=== PATIENT | male | born 1970 | race Two or more races ===

== ENCOUNTER 2018-05-28 15:27 | Observation (INO) | payer OTHER ==
--- NOTE | 2018-05-28 15:46 | EDPHY ---
H & P Stated Complaint: cp l chest x 5 days/cough pain worse with deep breath Time Seen by Provider: 05/28/18 15:46 HPI/ROS: CHIEF COMPLAINT: "Heart pain" HISTORY OF PRESENT ILLNESS: The patient presents to the ED with complaints of intermittent left anterior chest pain that is been occurring for the past week. The patient reports he has been experiencing it primarily at work when using heavy equipment. The patient denies any radiation of the pain to the neck back or jaw. He has no prior history of exertional chest pain or shortness of breath. He does endorse occasional intermittent symptoms of pleurisy. He denies asymmetric calf pain or swelling. The patient is a smoker. He has no other risk factors for heart disease. The patient denies any fever, cough or congestion. The patient reports that his chest pain was so severe last he was certain he was having heart attack. The patient does report that he drinks energy drinks throughout the day. He denies any correlation between the consumption of these beverages on the development of his symptoms. REVIEW OF SYSTEMS: A comprehensive 10 point review of systems is otherwise negative aside from elements mentioned in the history of present illness. Source: Patient Exam Limitations: No limitations - Personal History Current Tetanus Diphtheria and Acellular Pertussis (TDAP): Yes Tetanus Vaccine Date: < 10 years - Medical/Surgical History Hx Asthma: No Hx Chronic Respiratory Disease: No Hx Diabetes: No Hx Cardiac Disease: No Hx Renal Disease: No Hx Cirrhosis: No Hx Alcoholism: No Hx HIV/AIDS: No Hx Splenectomy or Spleen Trauma: No Other PMH: l eye surgery - Social History Smoking Status: Heavy smoker - Physical Exam Exam: General Appearance: Alert, no distress Eyes: Pupils equal and round no pallor or injection ENT, Mouth: Mucous membranes moist Respiratory: There are no retractions, lungs are clear to auscultation Cardiovascular: Regular rate and rhythm Gastrointestinal: Abdomen is soft and nontender, no masses, bowel sounds normal Neurological: A&O, normal motor function, normal sensory exam, normal cranial nerves Skin: Warm and dry, no rashes Musculoskeletal: Neck is supple nontender Extremities: symmetrical, full range of motion Psychiatric: Patient is oriented X 3, there is no agitation Constitutional: Initial Vital Signs Temperature (C) 36.8 C 05/28/18 15:33 Heart Rate 60 05/28/18 15:33 Respiratory Rate 18 05/28/18 15:33 Blood Pressure 131/84 H 05/28/18 15:33 O2 Sat (%) 97 05/28/18 15:33 O2 Delivery Mode Room Air Allergies/Adverse Reactions: No Known Allergies Allergy (Verified 05/28/18 15:33) Home Medications: Medication Instructions Recorded NK [No Known Home Meds] 05/28/18 Medical Decision Making - Diagnostics EKG Interpretation: EKG: Complete interpretation has been separately recorded in the [facility] archive. Summary impression: Sinus rhythm, rate 57. ED Course/Re-evaluation: The patient presents to the ED with increasing chest pain with exertion over the past several days. The patient's initial EKG demonstrates no evidence of ischemia. The patient's troponin is normal. The patient's D-dimer is negative which I feel adequately excludes pulmonary embolism. The patient has a borderline heart score however certainly as a concerning feature for increasing crescendo chest pain with exertion over the past several days. I do feel the prudent to admit the patient for a more expeditious workup of his chest pain. I did curbside Dr. Eloy Cheney from Cardiology. The patient will be admitted to the hospitalist service this evening. He will undergo cardiac rule out and stress test in the morning. Differential Diagnosis: Differential diagnosis considered includes acute coronary syndrome, pericarditis , myocarditis, pulmonary embolism, aortic dissection, pneumothorax - Data Points Laboratory Results: Laboratory Results 05/28/18 15:50 05/28/18 15:50 05/28/18 05/28/18 05/28/18 15:52 15:50 15:50 WBC RBC Hgb Hct MCV MCH MCHC RDW Plt Count MPV Neut % (Auto) Lymph % (Auto) Clinch % (Auto) Eos % (Auto) Baso % (Auto) Nucleat RBC Rel Count Absolute Neuts (auto) Absolute Lymphs (auto) Absolute Monos (auto) Absolute Eos (auto) Absolute Basos (auto) Absolute Nucleated RBC Immature Gran % Immature Gran # D-Dimer < 0.27 ug/mLFEU ug/mLFEU (0.00-0.50) Sodium 137 mEq/L mEq/L (135-145) Potassium 4.1 mEq/L mEq/L (3.5-5.2) Chloride 104 mEq/L mEq/L (97-110) Carbon Dioxide 23 mEq/l mEq/l (22-31) Anion Gap 10 mEq/L mEq/L (6-14) BUN 13 mg/dL mg/dL (7-23) Creatinine 0.8 mg/dL mg/dL (0.7-1.3) Estimated GFR > 60 Glucose 89 mg/dL mg/dL (70-100) Calcium 9.4 mg/dL mg/dL (8.5-10.4) POC Troponin I 0.00 ng/mL ng/mL (0.00-0.08) Troponin I 05/28/18 05/28/18 15:50 15:40 WBC 8.60 10^3/uL 10^3/uL (3.80-9.50) RBC 5.61 10^6/uL 10^6/uL (4.40-6.38) Hgb 16.9 g/dL g/dL (13.7-17.5) Hct 49.5 % % (40.0-51.0) MCV 88.2 fL fL (81.5-99.8) MCH 30.1 pg pg (27.9-34.1) MCHC 34.1 g/dL g/dL (32.4-36.7) RDW 13.5 % % (11.5-15.2) Plt Count 195 10^3/uL 10^3/uL (150-400) MPV 11.2 fL fL (8.7-11.7) Neut % (Auto) 63.6 % % (39.3-74.2) Lymph % (Auto) 26.0 % % (15.0-45.0) Clinch % (Auto) 9.0 % % (4.5-13.0) Eos % (Auto) 0.6 % % (0.6-7.6) Baso % (Auto) 0.5 % % (0.3-1.7) Nucleat RBC Rel Count 0.0 % % (0.0-0.2) Absolute Neuts (auto) 5.47 10^3/uL 10^3/uL (1.70-6.50) Absolute Lymphs (auto) 2.24 10^3/uL 10^3/uL (1.00-3.00) Absolute Monos (auto) 0.77 10^3/uL 10^3/uL (0.30-0.80) Absolute Eos (auto) 0.05 10^3/uL 10^3/uL (0.03-0.40) Absolute Basos (auto) 0.04 10^3/uL 10^3/uL (0.02-0.10) Absolute Nucleated RBC 0.00 10^3/uL 10^3/uL (0-0.01) Immature Gran % 0.3 % % (0.0-1.1) Immature Gran # 0.03 10^3/uL 10^3/uL (0.00-0.10) D-Dimer Sodium Potassium Chloride Carbon Dioxide Anion Gap BUN Creatinine Estimated GFR Glucose Calcium POC Troponin I Troponin I Pending Point of Care Test Results: Chemistry 05/28/18 15:52 POC Troponin I 0.00 ng/mL ng/mL (0.00-0.08) Departure - Departure Disposition: [facility] [place] Inpatient Acute Clinical Impression: Chest pain Condition: Fair
[2018-05-28 16:06] LABS: PLATELET COUNT 195 10^3/uL (150-400)
[2018-05-28] MEDS ORDERED: ONDANSETRON 4 MG/2 ML VIAL IVP PRN (16:47)
[2018-05-28] MEDS ORDERED: ACETAMINOPHEN 325 MG TAB PO PRN (16:47)
[2018-05-28] MEDS ORDERED: ONDANSETRON DISINTEGRATING 4 MG TAB PO PRN (16:47)
--- NOTE | 2018-05-28 16:51 | CPEKG ---
Test Reason : OPEN Blood Pressure : / mmHG Vent. Rate : 057 BPM Atrial Rate : 057 BPM P-R Int : 129 ms QRS Dur : 101 ms QT Int : 427 ms P-R-T Axes : 050 087 062 degrees QTc Int : 416 ms Sinus rhythm Confirmed by Moises Shipley ([id number]) on 05/28/2018 4:51:28 PM Referred By: Moises Shipley Confirmed By:Moises Shipley
--- NOTE | 2018-05-28 16:57 | PDGENHP ---
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 Since that time, he continues to experience intermittent chest pain even while at rest. He is unsure what worsens it, taking a deep breath and drinking water helps alleviate the pain. Initial troponin and EKG were unremarkable. He denies: Fevers, chills, vomiting, dysuria, constipation or diarrhea. Denies any past history of exertional chest pain, or family history of hypertension, myocardial infarctions, stroke, or blood clots. He is being admitted for further workup, treatment and monitoring. History Information - Allergies/Home Medication List Allergies/Adverse Reactions: No Known Allergies Allergy (Verified 05/28/18 15:33) Home Medications: NK [No Known Home Meds] 05/28/18 [Last Taken Unknown] I have personally reviewed and updated: family history, medical history, social history, surgical history - Past Medical History no pertinent PMH - Surgical History Reports: no pertinent surgical hx - Family History Positive for: non-pertinent - Social History Smoking Status: Heavy smoker (Smokes approximately 12-16 cigarettes per day) Tobacco Use: Cigarettes, Greater than 1 pack/day Alcohol Use: Occasionally Drug Use: None Additional social history: . Drinks 1-2 16 oz cans of [employer] energy drink/day Review of Systems Review of Systems: ROS: 10pt was reviewed & negative except for what was stated in HPI & below Physical Exam Physical Exam: Lab data and imaging reviewed. White blood cell: 8.60 Hemoglobin hematocrit: 16.9 in 49.5 Platelet count: 195 Sodium: 137 Potassium: 4.1 Chloride: 104 Carbon dioxide: 23 BUN/Cr: 13/0.8 Troponin: 0.00 D-dimer: <0.27 EKG: Sinus rhythm with normal axis Temp Pulse Resp BP Pulse Ox 36.8 C 60 18 131/84 H 97 05/28/18 15:33 05/28/18 15:33 05/28/18 15:33 05/28/18 15:33 05/28/18 15:33 Constitutional: no apparent distress, appears nourished, not in pain Eyes: PERRL, anicteric sclera, EOMI Ears, Nose, Mouth, Throat: moist mucous membranes, hearing normal, ears appear normal, no oral mucosal ulcers Cardiovascular: regular rate and rhythym, no murmur, rub, or gallop, No edema Peripheral Pulses: 2+: dorsalis-pedis (R), dorsalis-pedis (L) Respiratory: no respiratory distress, no rales or rhonchi, clear to auscultation Gastrointestinal: normoactive bowel sounds, soft, non-tender abdomen, no palpable masses Genitourinary: no bladder fullness, no bladder tenderness Skin: warm, normal color, no rashes or abrasions, no fluctuance, no induration, No mottled Musculoskeletal: full muscle strength, no muscle tenderness, normal joint ROM, no joint effusions Neurologic: AAOx3, sensation intact bilaterally, CN II-XII Intact Psychiatric: interacting appropriately, not anxious, not encephalopathic, thought process linear Lymph, Heme, Immunologic: no cervical LAD, no supraclavicular LAD Lab Data & Imaging Review 05/28/18 15:50 05/28/18 15:50 WBC 8.60 10^3/uL (3.80-9.50) 05/28/18 15:50 RBC 5.61 10^6/uL (4.40-6.38) 05/28/18 15:50 Hgb 16.9 g/dL (13.7-17.5) 05/28/18 15:50 Hct 49.5 % (40.0-51.0) 05/28/18 15:50 MCV 88.2 fL (81.5-99.8) 05/28/18 15:50 MCH 30.1 pg (27.9-34.1) 05/28/18 15:50 MCHC 34.1 g/dL (32.4-36.7) 05/28/18 15:50 RDW 13.5 % (11.5-15.2) 05/28/18 15:50 Plt Count 195 10^3/uL (150-400) 05/28/18 15:50 MPV 11.2 fL (8.7-11.7) 05/28/18 15:50 Neut % (Auto) 63.6 % (39.3-74.2) 05/28/18 15:50 Lymph % (Auto) 26.0 % (15.0-45.0) 05/28/18 15:50 [place] % (Auto) 9.0 % (4.5-13.0) 05/28/18 15:50 Eos % (Auto) 0.6 % (0.6-7.6) 05/28/18 15:50 Baso % (Auto) 0.5 % (0.3-1.7) 05/28/18 15:50 Nucleat RBC Rel Count 0.0 % (0.0-0.2) 05/28/18 15:50 Absolute Neuts (auto) 5.47 10^3/uL (1.70-6.50) 05/28/18 15:50 Absolute Lymphs (auto) 2.24 10^3/uL (1.00-3.00) 05/28/18 15:50 Absolute Monos (auto) 0.77 10^3/uL (0.30-0.80) 05/28/18 15:50 Absolute Eos (auto) 0.05 10^3/uL (0.03-0.40) 05/28/18 15:50 Absolute Basos (auto) 0.04 10^3/uL (0.02-0.10) 05/28/18 15:50 Absolute Nucleated RBC 0.00 10^3/uL (0-0.01) 05/28/18 15:50 Immature Gran % 0.3 % (0.0-1.1) 05/28/18 15:50 Immature Gran # 0.03 10^3/uL (0.00-0.10) 05/28/18 15:50 D-Dimer < 0.27 ug/mLFEU (0.00-0.50) 05/28/18 15:50 Sodium 137 mEq/L (135-145) 05/28/18 15:50 Potassium 4.1 mEq/L (3.5-5.2) 05/28/18 15:50 Chloride 104 mEq/L (97-110) 05/28/18 15:50 Carbon Dioxide 23 mEq/l (22-31) 05/28/18 15:50 Anion Gap 10 mEq/L (6-14) 05/28/18 15:50 BUN 13 mg/dL (7-23) 05/28/18 15:50 Creatinine 0.8 mg/dL (0.7-1.3) 05/28/18 15:50 Estimated GFR > 60 05/28/18 15:50 Glucose 89 mg/dL (70-100) 05/28/18 15:50 Calcium 9.4 mg/dL (8.5-10.4) 05/28/18 15:50 POC Troponin I 0.00 ng/mL (0.00-0.08) 05/28/18 15:52 Assessment & Plan Plan: This is a 48-year-old male with no past medical history presenting with intermittent nonradiating left-sided chest pain, onset last Monday. His vital signs are the following: Blood pressure 131/84, heart rate 60, respirations 18 , temperature 36.8 degrees, and oxygen saturation on room air 97%. Differential diagnoses are acute coronary syndrome, angina, and less likely pulmonary embolism. He is currently asymptomatic. #Chest pain: Heart score 2 (moderately suspicious, risk factors) -Initial troponin and EKG unremarkable: cycle trops Q6H x 2, cycle EKG Q6H x1 then PRN if symptomatic -Cont tele monitoring -Lipid panel in AM -Echo and treadmill NM testing in AM -Cards consulted and notified; left message for Dr. Grimm to consult pt in AM -D-dimer negative -Chest x-ray showing mild bronchitis airways disease with no focal pneumonia. There is mild bilateral peribronchial thickening, no congestive heart failure, no pleural effusion, or pneumothorax -Educated pt to lessen his amount of caffeine intake as he drinks 1-2 16 oz cans of [employer] energy drink per day #Tobacco cessation -He smokes 12-16 cigarettes a day -Does not want to quit right now -CXR w/results above Diet: Regular VTE ppx: SCDs Code: Full Dispo: Admit to obs <Raymundo Costa - Last Filed: 05/28/18 19:14> History and Physical - History of Present Illness Review of Systems Review of Systems: Physical Exam Physical Exam: Temp Pulse Resp BP Pulse Ox 36.6 C 5 L 16 121/72 H 95 05/28/18 19:05 05/28/18 19:05 05/28/18 19:05 05/28/18 19:05 05/28/18 19:05 Lab Data & Imaging Review 05/28/18 15:50 05/28/18 15:50 WBC 8.60 10^3/uL (3.80-9.50) 05/28/18 15:50 RBC 5.61 10^6/uL (4.40-6.38) 05/28/18 15:50 Hgb 16.9 g/dL (13.7-17.5) 05/28/18 15:50 Hct 49.5 % (40.0-51.0) 05/28/18 15:50 MCV 88.2 fL (81.5-99.8) 05/28/18 15:50 MCH 30.1 pg (27.9-34.1) 05/28/18 15:50 MCHC 34.1 g/dL (32.4-36.7) 05/28/18 15:50 RDW 13.5 % (11.5-15.2) 05/28/18 15:50 Plt Count 195 10^3/uL (150-400) 05/28/18 15:50 MPV 11.2 fL (8.7-11.7) 05/28/18 15:50 Neut % (Auto) 63.6 % (39.3-74.2) 05/28/18 15:50 Lymph % (Auto) 26.0 % (15.0-45.0) 05/28/18 15:50 [place] % (Auto) 9.0 % (4.5-13.0) 05/28/18 15:50 Eos % (Auto) 0.6 % (0.6-7.6) 05/28/18 15:50 Baso % (Auto) 0.5 % (0.3-1.7) 05/28/18 15:50 Nucleat RBC Rel Count 0.0 % (0.0-0.2) 05/28/18 15:50 Absolute Neuts (auto) 5.47 10^3/uL (1.70-6.50) 05/28/18 15:50 Absolute Lymphs (auto) 2.24 10^3/uL (1.00-3.00) 05/28/18 15:50 Absolute Monos (auto) 0.77 10^3/uL (0.30-0.80) 05/28/18 15:50 Absolute Eos (auto) 0.05 10^3/uL (0.03-0.40) 05/28/18 15:50 Absolute Basos (auto) 0.04 10^3/uL (0.02-0.10) 05/28/18 15:50 Absolute Nucleated RBC 0.00 10^3/uL (0-0.01) 05/28/18 15:50 Immature Gran % 0.3 % (0.0-1.1) 05/28/18 15:50 Immature Gran # 0.03 10^3/uL (0.00-0.10) 05/28/18 15:50 D-Dimer < 0.27 ug/mLFEU (0.00-0.50) 05/28/18 15:50 Sodium 137 mEq/L (135-145) 05/28/18 15:50 Potassium 4.1 mEq/L (3.5-5.2) 05/28/18 15:50 Chloride 104 mEq/L (97-110) 05/28/18 15:50 Carbon Dioxide 23 mEq/l (22-31) 05/28/18 15:50 Anion Gap 10 mEq/L (6-14) 05/28/18 15:50 BUN 13 mg/dL (7-23) 05/28/18 15:50 Creatinine 0.8 mg/dL (0.7-1.3) 05/28/18 15:50 Estimated GFR > 60 05/28/18 15:50 Glucose 89 mg/dL (70-100) 05/28/18 15:50 Calcium 9.4 mg/dL (8.5-10.4) 05/28/18 15:50 POC Troponin I 0.00 ng/mL (0.00-0.08) 05/28/18 15:52 Troponin I < 0.012 ng/mL (0.000-0.034) 05/28/18 15:40 Assessment & Plan Assessment: Chest pain (Acute) Plan: Patient seen and evaluated independently and care plan reviewed with ANIBAL Webb, agree with her assessment and plan with exceptions as noted in separate documentation--please see separate note for details.
--- NOTE | 2018-05-28 17:51 | HOSPPROG ---
Hospitalist Progress Note Assessment/Plan: 48 yo M with hx of HLD and current tobacco use presenting with chest pain occurring over the last week, initially with exertion, but today even with rest # chest pain: concerning hx as patient reports initially only exertional sxs but escalating over the last week to where he is now experiencing sxs at rest as well. He has no prior cardiac hx and notes that he has only had similar sxs in the past once, about 3 years ago. Initial w/u including troponin, ecg, ddimer and cxr are completely normal other than ? mild airways disease on CXR. Plan to perform serial ecg/serial troponin overnight and monitor on telemetry. Cardiology aware of admission and discussed care plan with ER doctor. So long as w/u remains negative overnight will proceed with treadmill stress test in am. (will change from nuc stress and echo previously ordered) # HLD: with LDL of 179 one year ago, not currently on statin therapy # tobacco use: recommending cessation # observation status Patient new to my care. Old records reviewed and summarized as above. Care plan reviewed with ER doctor and [employer] Jon, please see her separate documentation for further details. Objective: Vital Signs Temp Pulse Resp BP Pulse Ox 36.8 C 64 18 148/88 H 98 05/28/18 17:32 05/28/18 17:32 05/28/18 17:32 05/28/18 17:32 05/28/18 17:32 05/27/18 05/28/18 05/29/18 05:59 05:59 05:59 Intake Total 150 Balance 150 ICD10 Worksheet Patient Problems: Problems Problem Status Onset Chest pain Acute
[2018-05-29 11:47] VITALS: BP 114/75
--- NOTE | 2018-05-29 13:26 | CPR ---
[f rep st] NONINVASIVE CARDIAC PROCEDURE REPORT DATE OF PROCEDURE: 05/29/2018 REPORT TITLE: Treadmill stress test REASON FOR TEST: Chest pain. SUPERVISING PHYSICIAN: Dr. Korina Baird. Resting EKG shows a regular sinus rhythm with a ventricular rate of 76. No arrhythmias or ischemic c hanges noted. Resting blood pressure 108/62, oxygen saturation 91%. Resting heart rate 76. STRESS PORTION: He was exercised according to the Jacob protocol for a total of 9 minutes. There were no ischemic changes during testing. He did have occasional PVCs noted. He had no chest p ain during testing. Two minutes prior to stopping the treadmill, he noted increased fatigue. No mary jo nge in EKG was noted. He did finish out a full 9 minutes of exercise. With exercise, peak blood pre ssure 170/80. Peak heart rate 152. MET level reached 10.2. RECOVERY: He did spontaneously recover. There were no arrhythmias noted during recovery. He sponta neously recovered blood pressure and heart rate. Resting recovery blood pressure 124/80, heart rate 103. There were no EKG abnormalities noted. At this time, he currently is stable to return to his r oom. /[id number]/MODL
--- NOTE | 2018-05-30 04:36 | GDS ---
[f rep st] DISCHARGE SUMMARY DISCHARGE DIAGNOSES: 1. Chest pain. 2. Hyperlipidemia. 3. Tobacco dependence. HISTORY: The patient is a 48-year-old male, with a history of hyperlipidemia and smoking presenting with chest pain. He has no prior cardiac history. Troponin, EKG, D-dimer, and chest x-ray were all normal. He was monitored overnight on telemetry. Treadmill stress test was performed and was negati ve. He is okay to discharge home. DISCHARGE MEDICATIONS: Please see computerized record for full detailed list. There are no new medi cations given at time of hospital discharge. ADDITIONAL DISCHARGE INSTRUCTIONS: Follow up with primary care. /[id number]/MODL
== END 2018-05-29 14:13 | disposition home or self-care (01) ==
LOC: F2W 17:14
PROVIDERS: ADMIT Nurse Practitioner; ATTEND Internal Medicine
DX: R07.89 Other chest pain (principal); E78.5 Hyperlipidemia, unspecified; F17.210 Nicotine dependence, cigarettes, uncomplicated
CPT/HCPCS: 71046; 93005; 93017; 99285; G0378; 84484-ER